=== PATIENT | female | born 1960 | race Caucasian/White ===

== ENCOUNTER 2021-10-26 08:50 | Outpatient (CLI) | payer OTHER, SELFPAY ==
--- NOTE | ~2021-10-26 | PE_ITS ---
EXAMINATION: PET whole body melanoma DATE: 10/26/2021 11:38 INDICATION: Melanoma of the left upper extremity TECHNIQUE: Blood glucose level was 98 mg/dL. 11.1 mCi of 18-fluorodeoxyglucose (18-FDG) was administe red i.v. whole-body low dose computed tomography (CT) images were acquired for attenuation correction and anatomic localization. Positron emission tomography (PET) images were acquired in the same distr ibution beginning 87 minutes after injection. The dose-length product (DLP) was 884.80 mGy-cm. COMPARISON: None FINDINGS: Head/neck: FDG uptake in the oral cavity and vocal cords without suspicious CT correlate is likely ph ysiologic. No abnormal FDG uptake is identified. There are no pathologically enlarged lymph nodes of the neck. Chest: No abnormal FDG uptake is identified. The lungs are free of acute opacities. There is no pleur al effusion or pneumothorax. No pathologically enlarged thoracic lymph nodes are identified. The hear t size is normal. Calcified coronary artery atherosclerosis is noted. Abdomen/pelvis/proximal thighs: No abnormal FDG uptake is identified. Physiologic FDG activity is pre sent in the bowel and urinary tract. The liver, spleen, pancreas, gallbladder, and adrenal glands are normal. The kidneys are unremarkable. No pathologically enlarged abdominal or pelvic lymph nodes are identified. There is no free intraperitoneal gas or evidence of bowel obstruction. Musculoskeletal: Mild FDG uptake in the shoulders is likely degenerative. No abnormal FDG uptake is i dentified. There is moderate cervical spondylosis. Bilateral knee arthroplasties are noted. Extremities: No abnormal FDG uptake is identified in the lower extremities. There are surgical change s in the left axillary region related to lymph node dissection without evidence of abnormal FDG uptak e. Also seen is mild FDG uptake posteriorly in the left upper extremity, likely reflecting surgical c hange. IMPRESSION: 1. No evidence of metastatic disease. Reviewed, dictated and finalized at location A.
[2021-10-26 12:22] LABS: Glucose Point of Care 98 mg/dl (65-105)
== END 2021-10-26 08:51 | disposition home or self-care (01) ==
PROVIDERS: PCP Pediatrics; Visit Provider Surgery
DX: C43.62 Malignant melanoma of left upper limb, including shoulder (principal)
CPT/HCPCS: 78816; A9552